=== PATIENT | female | born 1995 | race Caucasian/White ===

== ENCOUNTER 2017-03-28 04:33 | Day surgery (SDC) | payer BC ==
--- NOTE | ~2017-03-28 | OP ---
Record Of Operation [facility] [address] [place]. [address] NAME: SIERRA SANTIAGO : 89 STATUS : REG [facility] PAT#: [id number] AGE: 21 ADM/REG DATE : 03/28/17 MR#: [id number] REPORT SERV DATE: 03/28/17 DICTATED BY: ARSENIO DAVENPORT DATE: 03/28/17 REPORT STATUS : Draft TRANSCRIBED BY: MODOmari DATE: 03/28/17 DATE OF PROCEDURE: 03/28/2017 PREOPERATIVE DIAGNOSIS: Right chronic refractory scapulothoracic bursitis. POSTOPERATIVE DIAGNOSIS: Right chronic refractory scapulothoracic bursitis. PROCEDURE: Right arthroscopic scapulothoracic bursectomy. COMPLICATIONS: None. ANESTHESIA: General endotracheal. INDICATIONS: This 21-year-old female was referred in after five years of refractory bursitis and crepitus in the scapulothoracic joint. She had a good response to the scapulothoracic injection. I felt that she had probably some underlying posterior instability on exam, which may have been the primary cause here, but she was not complaining of this at all and we discussed proceeding with a scapulothoracic bursectomy first with the possibility of the glenohumeral procedure at a later date if necessary. The patient verbalized understanding, wished to proceed with operative intervention. PROCEDURE IN DETAIL: The patient was induced in the supine position. She was taken to the prone position. The right upper extremity was prepped and draped in standard surgical fashion. A time-out protocol was enforced. Ancef was administered. We examined under anesthesia. She did have a posterior click and some laxity in the glenohumeral joint with shifting posteriorly. We internally rotated the arm and palpated the landmarks. We started with the superior medial angle portal and introduced the scope. We then needle localized into the bursa. This was the serratus bursa on the more posterior side that we entered and we used the ablator to debride all tenacious bursa being careful to achieve hemostasis. We cleared out the bursa here up to the superior medial angle of the scapula through the accessory inferior portal. We then placed a switching stick inferiorly and completed the bursectomy at the superior medial angle. There was wide-open space here and there was not much in the way of a bone spur that required debridement. We then drove the scope on the other side of the serratus and there was very copious thoracic bursa visible. There was a large vessel that we preserved of the dorsal scapular. We debrided the bursa carefully from both portals observing the chest wall. No complications were encountered. The scope was withdrawn. Portals closed with Monocryl. Steri-Strips were applied. The patient tolerated the procedure well and taken to the PACU in stable condition. POSTOPERATIVE PLAN: Early range of motion, scapular rehab, and strengthening of external rotators and inferior trapezius. Record Of Operation [facility] [id number] [place]. [address] NAME: SIERRA SANTIAGO : 89 STATUS : REG [facility]#: [id number] AGE: 21 ADM/REG DATE : 03/28/17 MR#: [id number] REPORT SERV DATE: 03/28/17 DICTATED BY: ARSENIO DAVENPORT DATE: 03/28/17 REPORT STATUS : Draft TRANSCRIBED BY: MANOLO DATE: 03/28/17 BSS/MANOLO Arsenio Davenport M.D. / [id number] CC: Rahul Escobar LESLIE ARMSTRONG
[~2017-03-28 04:33] MED LIST: ADVIL PO; T PO
== END 2017-03-28 16:48 | disposition home or self-care (01) ==
LOC: SDC 04:33
PROVIDERS: Orthopaedic Surgery Sports Medicine
PROC: 0RBJ4ZZ Excision of Right Shoulder Joint, Percutaneous Endoscopic Approach (ICD-10-PCS; principal; 2017-03-28 06:15)
DX: M75.81 Other shoulder lesions, right shoulder (principal); Z88.8 Allergy status to other drugs, medicaments and biological substances; Z87.440 Personal history of urinary (tract) infections; Z98.890 Other specified postprocedural states
CPT/HCPCS: 84703; J0690; J2250; J2405; J2710; J3010